=== PATIENT | male | born 1975 | race African-American/Black ===

== ENCOUNTER 2016-08-05 08:20 | Emergency (ER) | payer BC ==
[~2016-08-05] VITALS: Ht 180.3 cm; Wt 94.2 kg
[2016-08-05 08:31] VITALS: BP 136/76
[2016-08-05] MEDS ORDERED: NAPROSYN500 MG PO (10:06)
== END 2016-08-05 10:36 | disposition home or self-care (01) ==
LOC: EME 08:20
DX: S83.92XA Sprain of unspecified site of left knee, initial encounter (principal); Y93.66 Activity, soccer; X58.XXXA Exposure to other specified factors, initial encounter
CPT/HCPCS: 73564; 99281; 99284